=== PATIENT | male | born 1985 | race Hispanic/Latino ===

== ENCOUNTER 2018-09-07 07:10 | Emergency (ER) | payer SELFPAY ==
[2018-09-07] MEDS ORDERED: Adacel (T-DAP) 0.5 ML SYRINGE ONE (07:21)
[2018-09-07] MEDS ORDERED: Lidocaine 1% (PF) 30 ML VIAL ONE (07:27)
[2018-09-07] MEDS ORDERED: Ondansetron ODT 4 MG TAB ONE (07:59)
[2018-09-07] MEDS ORDERED: Bacitracin Zinc 1 Packet ONE (08:02)
[2018-09-07] MEDS ORDERED: diphenhydrAMINE 50 MG/ML VIAL ONE (08:57)
[2018-09-07] MEDS ORDERED: Metoclopramide HCl 10 MG/2 ML VIAL ONE (08:57)
== END 2018-09-07 08:11 | disposition home or self-care (01) ==
LOC: ERS 07:10
DX: S61.412A Laceration without foreign body of left hand, initial encounter (principal); W45.8XXA Other foreign body or object entering through skin, initial encounter
CPT/HCPCS: 12001; 90471; 90715; J1200; J2001; J2765; Q0162

== ENCOUNTER 2018-09-20 17:12 | Emergency (ER) | payer SELFPAY | END 2018-09-20 19:16 | disposition home or self-care (01) | LOC: ERS 17:12 | DX: S61.011D Laceration without foreign body of right thumb without damage to nail, subsequent encounter (principal) ==

== ENCOUNTER 2020-09-13 22:05 | Emergency (ER) | payer SELFPAY ==
[2020-09-13] MEDS ORDERED: Ondansetron ODT 4 MG TAB ONE (22:39)
[2020-09-14 02:39] LABS: SARS-CoV-2 MS2 Positive; SARS-CoV-2 N Gene Positive; SARS-CoV-2 S Gene Positive; SARS-CoV-2 by NAA DETECTED (NotDetected); SARS-CoV-2 orf1ab Positive
== END 2020-09-14 00:20 | disposition home or self-care (01) ==
LOC: ERS 22:05
DX: U07.1 COVID-19 (principal)
CPT/HCPCS: 87635; 87804; 99284; Q0162; U0003